=== PATIENT | female | born 1970 | race Hispanic/Latino ===

== ENCOUNTER 2021-05-25 08:12 | Emergency (ER) | payer SELFPAY ==
[~2021-05-25] VITALS: Ht 162.6 cm; Wt 74.8 kg
[2021-05-25] MEDS ORDERED: KETOROLAC TROMETHAMINE 60 MG/2 ML VIAL IM ONE (09:00)
[2021-05-25] MEDS ORDERED: GABAPENTIN300 MG PO (10:29)
[2021-05-25 10:44] VITALS: BP 119/63
== END 2021-05-25 10:45 | disposition home or self-care (01) ==
LOC: ER 08:16
DX: M54.2 Cervicalgia (principal); R20.2 Paresthesia of skin
CPT/HCPCS: 72125; 99283; J1885